=== PATIENT | female | born 1995 | race Two or more races ===

== ENCOUNTER 2025-05-14 23:49 | Emergency (ER) | payer MEDICAID, SELFPAY ==
[2025-05-14 23:56] VITALS: BP 123/83; PULSE 89; RESP 18; TEMP 36.9; O2SAT 99
[2025-05-14 23:57] VITALS: BMI 28.3
--- NOTE | 2025-05-15 00:02 | XR_ITS ---
Examination: Retroperitoneal ultrasound, complete Technique: Multiple high resolution grayscale images of the retroperitoneum obtained, including kidneys and bladder. Exam date and time:May 15, 2025, 0100 hrs. Indications: Bilateral flank pain, dysuria beginning one week ago. Findings: Right kidney 10.6 cm renal cortex 1.8 cm Left kidney 11.1 cm renal cortex 2.9 cm 9 mm midpole, 18 mm lower pole left renal calculi. Moderate renal parenchymal scar formation. No bladder mass or bladder calculi. Bladder prevoid volume 277 cc. Impression: Nonobstructing left renal calculi
--- NOTE | 2025-05-15 00:02 | EDRME_ITS ---
Rapid Medical Screening Exam [facility] Arrival date/time: 05/14/25 23:49 29F with history of R ureter tear s/p repair presents to ED with 1 week of R flank pain and dysuria. Chief Complaint: Urogenital-Female Time Seen by Provider: 05/14/25 23:53 Vital signs: Vital Signs Temperature 98.4 F 05/14/25 23:56 Pulse Rate 89 05/14/25 23:56 Respiratory Rate 18 05/14/25 23:56 Blood Pressure 123/83 05/14/25 23:56 Pulse Oximetry (%) 99 05/14/25 23:56 Oxygen Delivery Method Room Air 05/14/25 23:56
[2025-05-15 00:33] LABS: Basophils # (Auto) 0.0 Thou/mm3 (0.0-0.2); Basophils % (Auto) 0 % (0-2.5); Eosinophils # (Auto) 0.1 Thou/mm3 (0.0-0.5); Eosinophils % (Auto) 1 % (0-10); Hematocrit 37.7 % (36.0-46.0); Hemoglobin 12.6 g/dL (12.0-16.0); Immature Granulocytes Auto 0.03 Thou/mm3 (0.00-0.00); Lymphocytes # (Auto) 3.5 Thou/mm3 (1.0-4.8); Lymphocytes % (Auto) 37 % (10-50); Mean Corpuscular HGB Conc 33.4 g/dl (31.0-37.0); Mean Corpuscular Hemoglobin 27.8 pg (25.0-35.0); Mean Corpuscular Volume 83 fL (80-100); Monocytes # (Auto) 0.7 Thou/mm3 (0.0-0.8); Monocytes % (Auto) 8 % (0-12); Neutrophils # (Auto) 5.1 Thou/mm3 (1.8-7.7); Neutrophils % (Auto) 54 % (37-80); Nucleated Red Blood Cell # 0.00 Thou/mm3 (0.00-0.00); Nucleated Red Blood Cell % 0 /100 WBC (0); Platelet Count 263 Thou/mm3 (140-440); RDW Standard Deviation 40.2 fL (36.4-46.3); Red Blood Count 4.54 Miln/mm3 (4.00-5.20); White Blood Count 9.4 Thou/mm3 (3.6-11.0)
[2025-05-15 00:40] LABS: Alanine Aminotransferase 18 U/L (10-49); Albumin, Serum 5.1 gm/dL (3.5-5.0); Albumin/Globulin Ratio 2.1 (1.2-2.2); Alkaline Phosphatase 96 U/L (46-116); Anion Gap 9 (7-16); Aspartate Amino Transferase 23 U/L (0-34); BUN/Creatinine Ratio 8 Ratio (12-20); Bilirubin,Total 0.3 mg/dL (0.3-1.2); Blood Urea Nitrogen 7 mg/dL (9-23); Calcium 10.2 mg/dL (8.3-10.6); Calcium (Corrected) 10.2 mg/dL (8.5-10.1); Carbon Dioxide 29.1 mMol/L (20.0-31.0); Chloride 102 mMol/L (98-107); Creatinine (Component) 0.9 mg/dL (0.6-1.3); Estimated Creatinine Clearance 95.6 mL/min (>60); Globulin 2.4 gm/dL (2.3-3.5); Glucose 96 mg/dL (74-106); Osmolality,Calculated 277 (275-295); Potassium 3.8 mMol/L (3.4-5.1); Sodium 140 mMol/L (136-145); Total Protein 7.5 gm/dL (5.7-8.2); eGFR > 60 See Note
[2025-05-15 01:30] LABS: Collection Type, Urine Clean Catch
[2025-05-15 01:42] LABS: Amorphous Crystals,Urine Present (Absent); Bacteria,Urine Rare; Bilirubin,Urine Negative (Negative); Blood,Urine Negative (Negative); Clarity,Urine Turbid (Clear/Hazy); Color,Urine Lt-Yellow (Lt Yel-Yel); Culture Indicated,Urine Not Indicated; Glucose, Urine Negative (Negative); HCG Qualitative,Urine Negative; Hyaline Casts,Urine < 1 /hpf (0-1); Ketones,Urine Negative (Negative); Leukocyte Esterase,Urine Positive (Negative); Nitrite,Urine Negative (Negative); PH,Urine 6.5 (5.0-7.0); Protein,Urine Negative (Neg - Trace); RBC,Urine 3 /hpf (0-3); Specific Gravity,Urine 1.011 (1.001-1.035); Squamous Epithelial Cell,Urine 15 /hpf (0-5); Urobilinogen,Urine Negative mg/dL (0.0-1.0); WBC,Urine 5 /hpf (0-5)
[2025-05-15 01:58] LABS: Amphetamine/Methamp Scrn,U Positive (Negative); Barbiturate Screen,Urine Negative (Negative); Benzodiazepines Screen,Urine Negative (Negative); Benzoylecgonine Screen, Ur Negative (Negative); Fentanyl Screen,Urine Negative (Negative); Opiate Screen,Urine Negative (Negative); THC Screen,Urine Negative (Negative)
--- NOTE | 2025-05-15 02:03 | PD.EDFMALE ---
ED Female Urogenital RME/HPI General Chief complaint: Urogenital-Female Stated complaint: PAINFUL URINATION Time Seen by Provider: 05/14/25 23:53 Arrival date/time: 05/14/25 23:49 RME / HPI RME / HPI Narrative: 05/14/25 23:49 29F with history of R ureter tear s/p repair presents to ED with 1 week of R flank pain and dysuria. DR. MCKENNA MAIN ED EVALUATION: Patient with Hx of urolithiasis with ureteral stricture and subsequent tear with repair approximately 1 year [employer] presents with ongoing urinary frequency, urgency, and dysuria for approximately 1 week duration. Decreased urinary output and malodorous urine noted. Notes low-grade fever and reported chills within last 24 hours. No vaginal discharge. Patient took 1 dose of Bactrim earlier today. PMH includes uropathy and kidney stones. SHx includes cholecystectomy and ureteral tear repair. PMHx includes obstructive uropathy and kidney stones. PSHx includes Cholecystectomy and ureteral tear repair. Repost allergies to Vancomycin and Penicillin. Social history is negative for alcohol and illicit drug abuse. Related Data Home Medications ?Medication ?Instructions ?Recorded ?Confirmed escitalopram oxalate 10 mg tablet 10 mg PO QDAY 03/29/23 04/28/24 (Lexapro) Previous Rx's ?Medication ?Instructions ?Recorded hydrocodone 5 mg-acetaminophen 325 1 tab PO Q8H PRN pain #14 tabs 05/15/25 mg tablet levofloxacin 500 mg tablet 500 mg PO QDAY 7 days #7 tabs 05/15/25 promethazine 12.5 mg tablet 12.5 mg PO Q6H PRN nausea and 05/15/25 vomiting #14 tabs Allergies Allergy/AdvReac Type Severity Reaction Status Date / Time amoxicillin Allergy Intermediate Hives Verified 04/28/24 11:25 vancomycin Allergy Intermediate Rash Verified 04/28/24 11:25 Review of Systems Review of Systems Systems Reviewed: All systems reviewed, normal except as documented Past Medical History Past Medical History GENITOURINARY: Positive Genitourinary Disorders and Kidney Stones REPRODUCTIVE: Positive Previous Pregnancies PSYCHO/SOCIAL: Positive Depression OTHER HISTORY: Positive Hospitalization (surgery) Family History FAMILY HISTORY: Positive Family Surgery Surgical History SURGICAL: Positive Tubal Ligation and Section (1) Social History SMOKING STATUS: Current every day smoker ED Exam Narrative Physical exam: GEN. APPEARANCE: The patient is alert awake oriented X-3 in no distress, lying down comfortably, does not look ill/toxic. Patient has good eye contact. Patient is cooperative. VITALS: All vitals were reviewed and the pulse ox is 99% on room air which is normal according to my interpretation. HEENT: Normocephalic, atraumatic. Pupils are equal and reactive. Oral mucosa is moist. Patent Nares NECK: Supple, nontender, no thyromegaly, no meningismus, no JVD, no step offs CHEST: Symmetrical, atraumatic, and with equal expansion , Nontender on palpation no deformity and no crepitus. CARDIOVASCULAR: Heart regular rhythm no murmur or gallop rub or extra beats. LUNGS: Clear to auscultation bilaterally with symmetrical chest rise. No laboring tachypnea or wheezing. No intercostal subcostal retraction. No rales and no rhonchi. ABDOMEN: Soft, flat, right CVA tenderness extending to RLQ, no guarding or peritoneal findings, or rebound tenderness. There are no abnormal masses palpated. Active and normal bowel sounds. EXTREMITIES: Nontender. No edema. No cyanosis. Patient is able to move all 4 extremities well, with full ROM and good CSM. SKIN: Warm and dry, no jaundice or rashes noted. MUSCULOSKELETAL: No lubar or midline bony tenderness. There is no CVA tenderness. No paraspinal muscle spasm or tenderness. NEURO: Patient is DEL [place]LE x 4, Cranial nerves II through XII grossly intact. There is no focal neurologic deficits noted. GCS is 15, PNS and [employer] appear grossly intact. PSYCHIATRIC: Patient is in normal mood and affect, cooperative, no SI or HI or hallucinations. Course Quality Measures none Orders Category Date Time Status US retroperitoneal comp Stat Exams 05/15/25 00:02 Taken CBC Stat Lab 05/15/25 00:15 Completed CMP [Comprehensive Metabolic Panel] Stat Lab 05/15/25 00:15 Completed Drug Screen,Urine Stat Lab 05/15/25 01:24 Completed HCG Qualitative,Urine Stat Lab 05/15/25 01:24 Completed Urinalysis, C/S if Indicated Stat Lab 05/15/25 01:24 Completed Levofloxacin [Levaquin] Med 05/15/25 05:09 Discontinued 500 mg PO X1 ONE Metoclopramide Inj [Reglan Inj] Med 05/15/25 02:20 Discontinued 10 mg IVP X1 ONE Morphine* Inj Med 05/15/25 02:21 Discontinued 4 mg IVP X1 ONE Morphine* Inj Med 05/15/25 05:08 Discontinued 4 mg IVP X1 ONE Sodium Chloride 0.9% 1000 ml [Ns] 1,000 ml Med 05/15/25 02:20 Discontinued IV 999 mls/hr Vital Signs Vital signs: Vital Signs Temperature 98.4 F 05/14/25 23:56 Pulse Rate 89 05/14/25 23:56 Respiratory Rate 18 05/14/25 23:56 Blood Pressure 123/83 05/14/25 23:56 Pulse Oximetry (%) 99 05/14/25 23:56 Oxygen Delivery Method Room Air 05/14/25 23:56 Urogenital - Female MDM Narrative MDM Narrative:: Scribe Attestation: INuzhat, am scribing for and in the presence of Dr. Mckenna. Provider Notation: Although this document has been carefully reviewed, there may still be some phonetic and other typographical errors. These errors are purely grammatical due to imperfections in the software program and should not be construed in any way to compromise the substance of the patient's medical care during this visit. Patient with Hx of urolithiasis with ureteral stricture and subsequent tear with repair approximately 1 year [employer] presents with ongoing urinary frequency, urgency, and dysuria for approximately 1 week duration. Decreased urinary output and malodorous urine noted. Please see PE findings. Laboratory markers, including CBC demonstrated normal WBC, no anemia, thrombocytopenia, no left shift or bandemia. Serum chemistries essentially unremarkable with the exception of elevated corrected calcium of 10.2. UA demonstrating positive leakocyte esterase and nitrites negative, WBC and rare bacteria present. Specimen considered contaminated. Patient hydrated with NS to correct volume deficit, received imperical ABX and low dose narcotic analgesic and anti emetics with mild to moderate relief. Currently awaiting results of retroperitoneal US. Patient may require contrast CT scan of abdomen/pelvis prior to definitive disposition. US demonstrated non-obstructive left-sided intraparenchymal kidney stones. Patient remained hemodynamically stable without signs of sepsis. Patient did require incremental dose of narcotic analgesics and observed for an extended amount of time. Patient is considered stable for discharge with closely anticipated F/U. Patient data External records reviewed:: [facility] previous records (Reviewed prior ED records from 09/28/23. Patient was seen for Abdominal pain.) Clinical information provided by:: patient Social determinants that could affect healthcare access:: none Patient has the following chronic illnesses:: uropathy and kidney stones How is presenting disease/condition affected by chronic disease/condition?: exacerbated by Evaluation data The following diagnostics were reviewed and interpreted by me:: lab results and radiology exam(s) Lab and/or radiology exams considered but not ordered:: None Interpretation Summary: RADIOLOGY Retroperitoneum US: Findings: Right: The right kidney measures 10.6 cm and demonstrates lobular margins. There is no hydronephrosis or renal calculus. The corticomedullary differentiation is maintained. Left: The left kidney measures 11.1 cm and is unremarkable. There is no hydronephrosis. Nonobstructing stones at the midpole and inferior pole both measuring 0.9 cm. The corticomedullary differentiation is maintained. The urinary bladder is unremarkable. No abnormalities by Doppler. Impression: Nonobstructing left nephrolithiasis. No hydronephrosis. Lobular margins of the right kidney Medications / Prescriptions Medications or Prescriptions considered but not ordered:: None Medication administrations:: Medication Administration History Discontinued Medications Sodium Chloride (Ns) 1,000 mls @ 999 mls/hr IV .Q1H1M ONE Stop: 05/15/25 03:20 Last Infusion: 05/15/25 03:45 Dose: Infused Documented By: Admin: 05/15/25 02:31 Dose: 999 mls/hr Documented By: ROBB Levofloxacin (Levofloxacin 250 Mg Tablet) 500 mg PO X1 ONE Stop: 05/15/25 05:10 Last Admin: 05/15/25 05:20 Dose: 500 mg Documented By: ROBB Metoclopramide HCl (Metoclopramide Inj 5 Mg/Ml Vial 2 Ml) 10 mg IVP X1 ONE; Protocol Stop: 05/15/25 02:21 Last Admin: 05/15/25 02:32 Dose: 10 mg Documented By: ROBB Morphine Sulfate (Morphine Sulf Inj 4 Mg/Ml Vial) 4 mg IVP X1 ONE Stop: 05/15/25 02:22 Last Admin: 05/15/25 02:32 Dose: 4 mg Documented By: ROBB Morphine Sulfate (Morphine Sulf Inj 4 Mg/Ml Vial) 4 mg IVP X1 ONE Stop: 05/15/25 05:09 Last Admin: 05/15/25 05:20 Dose: 4 mg Documented By: ROBB See above if any Consultations Consultation(s) initiated? (list below): No Diagnosis Urogenital Female Differential Diagnosis: urinary tract infection, ovarian cyst, ruptured ovarian cyst, cystitis and other (Pyelonephritis, Sepsis) Most likely diagnosis given after review of the tests above:: Renal colic on right side, UTI Admission Indicated Admission indicated?: not indicated Explain why admission is indicated or not indicated:: Patient does not meet admission criteria Admission Request Was there a request for admission?: No Disposition Plan Disposition Plan: Discharge Discharge Attestation Discharge Attestation: The patient and all family members were given an opportunity to ask questions and understood the discharge instructions. Discharge instructions specifically effects, indications for sooner follow up or return to the emergency department, and the expected course of current diagnosis. Patient condition: Stable Discharge Plan Plan Patient Disposition: HOME (Self Care) Discharge Disposition comment: stable Prescriptions/Referrals Prescriptions/Med Rec: New levofloxacin 500 mg tablet 500 mg PO QDAY 7 Days Qty: 7 0RF hydrocodone-acetaminophen 5-325 mg tablet 1 tab PO Q8H MDD 3 tab PRN (Reason: pain) Qty: 14 0RF promethazine 12.5 mg tablet 12.5 mg PO Q6H PRN (Reason: nausea and vomiting) Qty: 14 0RF No Action escitalopram oxalate [Lexapro] 10 mg Tablet 10 mg PO QDAY Referrals: Leesa Farr NP [Primary Care Provider] - In 1 week Problem List Clinical Impression: Renal colic on right side, UTI (urinary tract infection) Patient/Caregiver Discharge Instructions Discharge Activity: activity as tolerated Diet Instructions: force fluids Education Materials: ED Abdominal Pain Appendx Poss Additional Instructions: Increase p.o. fluids. Low calcium intake. Follow-up with urologist in 3 to 5 days. Medication as directed. Return if worsening i.e. fever escalating pain persistent nausea and vomiting or worsening symptoms. Print Language: Albanian Stand Alone Forms: [facility] Award Info., Patient Portal Info Letter
--- NOTE | 2025-05-15 02:24 | PRELIM_ITS ---
Renal/Retroperitoneal ultrasound with Doppler. May 15, 2025 at 0100 hours Clinical history: Right flank pain. Technique: Duplex scan of the bilateral renal arterial and venous tree was performed utilizing 2D grayscale imaging, Doppler spectral analysis and color flow. Comparison: None available at the time of this report. Findings: Right: The right kidney measures 10.6 cm and demonstrates lobular margins. There is no hydronephrosis or renal calculus. The corticomedullary differentiation is maintained. Left: The left kidney measures 11.1 cm and is unremarkable. There is no hydronephrosis. Nonobstructing stones at the midpole and inferior pole both measuring 0.9 cm. The corticomedullary differentiation is maintained. The urinary bladder is unremarkable. No abnormalities by Doppler. Impression: Nonobstructing left nephrolithiasis. No hydronephrosis. Lobular margins of the right kidney. Report Electronically Signed By: Andres Mendez 05/15/2025 2:23:42 AM [EST]
[2025-05-15] MEDS: SODIUM CHLORIDE 0.9% 1000 ML 1,000 ML 999 ML IV (02:31)
[2025-05-15] MEDS: MORPHINE SULF INJ 4 MG/ML VIAL IVP ×2 (02:32→05:20)
[2025-05-15] MEDS: METOCLOPRAMIDE INJ 5 MG/ML VIAL 2 ML 10 MG IVP (02:32)
[2025-05-15] MEDS: LEVOFLOXACIN 250 MG TABLET 500 MG PO (05:20)
== END 2025-05-15 05:29 | disposition home or self-care (01) ==
PROVIDERS: Physician Assistant; Emergency Provider Emergency Medicine; PCP Nurse Practitioner Family
DX: N39.0 Urinary tract infection, site not specified (principal); N20.0 Calculus of kidney
CPT/HCPCS: 36415; 76770; 80053; 80307; 81001; 81025; 85025; 96361; 96374; 96375; 96376; 99283; J2270; J2765; J7030; A9270